=== PATIENT | female | born 2000 | race Two or more races ===

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

== ENCOUNTER 2023-04-30 01:31 | Emergency (ER) | payer MEDICAID ==
[2023-04-30] MEDS ORDERED: VALA1TAB34 PO (03:01)
[2023-04-30] MEDS ORDERED: HYDR25CA PO (03:01)
[2023-04-30] MEDS ORDERED: IBUP1TAB5 PO (03:01)
[2023-04-30 03:46] VITALS: BP 113/70; PULSE 72; RESP 14; TEMP 98.4; O2SAT 99
== END 2023-04-30 03:49 | disposition home or self-care (01) ==
LOC: ER 01:31
DX: R21 Rash and other nonspecific skin eruption (principal); N39.0 Urinary tract infection, site not specified